=== PATIENT | female | born 1970 | race Two or more races ===

== ENCOUNTER → 2024-07-26 | Outpatient (CLI) | payer BC, SELFPAY | END | disposition home or self-care (01) | LOC: COPL 17:05 | PROVIDERS: PCP Family Medicine; Referring Provider Obstetrics & Gynecology; Visit Provider Obstetrics & Gynecology | DX: N83.8 Other noninflammatory disorders of ovary, fallopian tube and broad ligament (principal) | CPT/HCPCS: 36415; 86304 ==